=== PATIENT | male | born 1950 | race Caucasian/White ===

== ENCOUNTER 2016-11-24 20:30 | Emergency (ER) | payer MEDICAID, OTHER ==
[~2016-11-24] VITALS: Ht 175.3 cm; Wt 76.4 kg
[~2016-11-24 20:30] MED LIST: DILAUDID; ECOTRIN81 MG PO; ESCITALOPRAM10 MG PO; GLUCOPHAGE1000 MG PO; GLUCOTROL5 MG PO; LEXAPRO; LISINOPRIL; LORAZEPAM; METFORMIN; NEURONTIN300 MG PO; SINEMET CR 25 M1 TER PO; ZESTRIL10 MG PO; ZOCOR20 MG PO
[2016-11-24 20:47] VITALS: BP 152/78
--- NOTE | 2016-11-24 22:01 | NUR ---
Patient ambulated to bed 08.
--- NOTE | 2016-11-24 22:08 | NUR ---
Dr. Alex evaluating patient at bedside.
[2016-11-24] MEDS ORDERED: INSULIN HUMAN REGULAR 100 UNITS/ML 10 ML VIAL IVP ONE (22:10)
[2016-11-24] MEDS ORDERED: FLUORESCEIN OPTH STRIP 1 MG OP ONE (22:10)
[2016-11-24] MEDS ORDERED: TETRACAINE 0.5% OPTH SOL 2 ML BTL OP ONE (22:10)
[2016-11-24] MEDS ORDERED: GENTAMICIN OP 0.3% 10.5 MG/3.5 GM TUBE OP ONE (22:10)
[2016-11-24] MEDS ORDERED: NACL 0.9% 1,000 ML IV ONE (22:10)
--- NOTE | 2016-11-24 22:10 | NUR ---
66M BIB SELF W/C/O RIGHT EYE PAIN SINCE TODAY. DENIES ANY TRAUMA. STATES HE WAS AT HOME WHEN EYE IRRITATION BEGAN. RIGHT EYE SWELLING AND REDNESS NOTED. DENIES N/V/D; SKIN IS PINK/WARM/DRY; AAOX4 WITH EVEN AND STEADY GAIT; LUNGS CLEAR BL; HR EVEN AND REGULAR; PT DENIES ANY FEVER, CP, SOB, OR COUGH AT THIS TIME; PATIENT STATES PAIN OF 9/10 AT THIS TIME; VSS; PATIENT POSITIONED FOR COMFORT; HOB ELEVATED; BEDRAILS UP X2; BED DOWN. ER MD MADE AWARE OF PT STATUS.
[2016-11-24] MEDS ORDERED: FLUORESCEIN OPTH STRIP 1 MG ONE (22:13)
[2016-11-24] MEDS ORDERED: TETRACAINE 0.5% OPTH SOL 2 ML BTL ONE (22:13)
--- NOTE | 2016-11-24 22:25 | NUR ---
LAB AT BEDSIDE.
--- NOTE | 2016-11-24 22:49 | NUR ---
LAB COLLECTED. IV TO LEFT HAND #24; ADMINISTERED IVF AND MEDICATION ORDERED WITH EDUCATION. PATIENT VERBALIZED UNDERSTANDING AND TOLERATED WELL. WILL CONTINUE TO MONITOR AND REASSESS.
--- NOTE | 2016-11-24 23:01 | NUR ---
PATIENT AWARE OF URINE COLLECTION; PATIENT STATES HE URINATED BEFORE HE CAME; STATES HE WILL TRY WHEN HE CAN.
--- NOTE | 2016-11-24 23:22 | NUR ---
GAVE PATIENT URINAL; STATES HE WILL TRY TO URINATE
[2016-11-24] MEDS ORDERED: MORPHINE SULFATE 4 MG/ML SYR IVP ONE (23:45)
--- NOTE | 2016-11-24 23:46 | NUR ---
PATIENT CALLED FRIEND DIANA TO COME PICK HIM UP UPON DISCHARGE
--- NOTE | 2016-11-24 23:51 | NUR ---
APPLIED EYE DRESSING TO RIGHT EYE. PATIENT C/O 9/10 PAIN TO RIGHT EYE. VSS. ADMINISTERED PAIN MEDICATION ORDERED WITH EDUCATION. PATIENT VERBALIZED UNDERSTANDING AND TOLERATED WELL. WILL REASSESS AND CONTINUE TO MONITOR. BS CHECK; ER INFORMED
--- NOTE | 2016-11-25 | NUR ---
DIANA FRIEND AT BEDSIDE
[2016-11-25 00:07] VITALS: BP 152/78
--- NOTE | 2016-11-25 00:07 | NUR ---
Patient discharged with v/s stable. Written and verbal after care instructions given and explained. Patient alert, oriented and verbalized understanding of instructions. Ambulatory with steady gait. All questions addressed prior to discharge. ID band removed. Patient advised to follow up with PMD. Rx of TRAMADOL 50MG given. Patient educated on indication of medication including possible reaction and side effects. Opportunity to ask questions provided and answered. DISCHARGED AND IV REMOVED BY
== END 2016-11-25 00:07 | disposition home or self-care (01) ==
LOC: MED 20:30
DX: S05.01XA Injury of conjunctiva and corneal abrasion without foreign body, right eye, initial encounter (principal); E11.65 Type 2 diabetes mellitus with hyperglycemia; I10 Essential (primary) hypertension; Z79.82 Long term (current) use of aspirin; Z79.899 Other long term (current) drug therapy; X58.XXXA Exposure to other specified factors, initial encounter; Y93.89 Activity, other specified; Y92.89 Other specified places as the place of occurrence of the external cause; Y99.8 Other external cause status
CPT/HCPCS: 36415; 80053; 81001; 82948; 85025; 96361; 96374; 96375; 99285; J1815; J2270; J7030

== ENCOUNTER 2018-09-05 23:19 | Inpatient (IN) | payer OTHER, MEDICARE ==
[~2018-09-05] VITALS: Ht 175.3 cm; Wt 90.3 kg
--- NOTE | 2018-09-05 01:10 | NUR ---
RECEIVED PT FROM ER NURSE. PT AWAKE,ALERT, OX 4. PT ASSESSES WITH MULTIPLE WOUNDS ON FOOT BY ER. PHOTO TAKEN BY ER. PT'S SACRUM ASSESSED W/ PHOTO TAKEN AT ROOM. PT TELE. WITH ONGOING IVF AB FROM ER INFUSING WELL. PT ORIENTED TO UNIT. POC DISCUSSED. PLACED BED AT LOWEST POSITION AND CALL LIGHT PLACED WITHIN EASY REACH.
[2018-09-05 23:19] VITALS: BP 105/63
[~2018-09-05 23:19] MED LIST changes: +ASPI-1093 PO; +CARB1TER4 PO; -DILAUDID; -ECOTRIN81 MG PO; +ESCI10TA61 PO; -ESCITALOPRAM10 MG PO; +GABA300C PO; +GLIP5TAB4 PO; -GLUCOPHAGE1000 MG PO; -GLUCOTROL5 MG PO; -LEXAPRO; +LISI10TA11 PO; -LISINOPRIL; -LORAZEPAM; +METF1000 PO; -METFORMIN; -NEURONTIN300 MG PO; +SIMV20TA1 PO; -SINEMET CR 25 M1 TER PO; -ZESTRIL10 MG PO; -ZOCOR20 MG PO
--- NOTE | 2018-09-05 23:19 | NUR ---
Patient BIBA ACLS, transferred to bed 7. RN evaluating patient at bedside.
--- NOTE | 2018-09-05 23:20 | NUR ---
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 AOX4, GCS 15. REPORTS SOB, DENIES N/V/D, SKIN IS WARM AND DRY. ARRIVED ON 2LPMNC SATS 98%. PER EMS FACILITY GAVE PT ASA 325MG AND EMS GAVE NITRO 0.4MG. PT DENIES ANY RELIEF. ALL LUNG SOUNDS CLEAR BUT DIMINSHED AT BASES. PMH: HYPERLIPIDEMIA, PARKINSON'S, OPEN HEART SURGERY X2, DM, FOOT ULCERS Addendum: 09/06/18 at 0044 by NICANOR PT ALSO ARRIVED WITH THERESE TO LEFT INNER THIGH AND LEFT GROIN, PER PT " THEY PUT A STENT ON MY LEG"
--- NOTE | 2018-09-05 23:20 | NUR ---
Patient noted to have existing wounds upon arrival to ER. Photos taken of wound and placed in chart. Wound covered with dressing. Physician informed.
--- NOTE | 2018-09-05 23:22 | NUR ---
Dr. Stuart evaluating patient at bedside.
[2018-09-05] MEDS ORDERED: NACL 0.9% 1,000 ML IV ONE (23:25)
[2018-09-05] MEDS ORDERED: ALBUTEROL SULFATE/IPRATROPIU 3 ML SOL IH ONE (23:25)
--- NOTE | 2018-09-05 23:37 | NUR ---
Breathing treatment administered at bedside by respiratory therapist.
--- NOTE | 2018-09-05 23:40 | NUR ---
histology technologist at bedside.
[2018-09-05 23:55] LABS: HEMATOCRIT 25.4 % (36-52)
--- NOTE | 2018-09-05 23:55 | NUR ---
PT SATS 98% ON ROOM AIR. DC O2 ON NC.
[2018-09-06 00:02] LABS: BASOPHILS # (AUTO) 0.1 K/uL (0.00-0.22); BASOPHILS % (AUTO) 0.9 % (0.0-2.0); EOSINOPHILS # (AUTO) 0.4 K/uL (0-0.4); EOSINOPHILS % (AUTO) 3.1 % (0.0-4.0); HEMOGLOBIN 8.1 g/dL (12.0-18.0); LYMPHOCYTES # (AUTO) 1.8 K/uL (2.0-11.5); LYMPHOCYTES % (AUTO) 15.2 % (20.5-51.1); MEAN CORPUSCULAR HEMOGLOBIN 25 pg (27-31); MEAN CORPUSCULAR HGB CONC 32 g/dL (33-37); MEAN CORPUSCULAR VOLUME 77.6 fL (80-94); MONOCYTES # (AUTO) 1.3 K/uL (0.8-1.0); MONOCYTES % (AUTO) 10.6 % (1.7-9.3); NEUTROPHILS # (AUTO) 8.4 K/uL (1.8-7.7); NEUTROPHILS % (AUTO) 70.2 % (42.2-75.2); PLATELET COUNT (AUTO) 578 K/uL (140-450); RED BLOOD CELL COUNT(AUTO) 3.28 MIL/uL (4.20-6.10); RED CELL DISTRIBUTION WIDTH 16.3 % (11.6-13.7)
[2018-09-06 00:07] LABS: ANION GAP 12.3 (8-16); CARBON DIOXIDE 25.9 mmol/L (21-32); POTASSIUM 4.2 mmol/L (3.5-5.1)
[2018-09-06 00:08] LABS: CREATININE 1.3 mg/dL (0.7-1.3)
[2018-09-06 00:10] LABS: ALBUMIN 1.7 g/dL (3.4-5.0); TOTAL BILIRUBIN 0.1 mg/dL (0.0-1.0)
[2018-09-06] MEDS ORDERED: VANCOMYCIN 1,000 MG in DEXTROSE 5% 250 ML IV ONE (00:15)
[2018-09-06] MEDS ORDERED: PIPERACILLIN/TAZOBACTAM 3.375 GM in DEXTROSE 5% 50 ML IV ONE (00:15)
[2018-09-06] MEDS ORDERED: NACL 0.9% 1,000 ML IV ONE (00:15)
[2018-09-06] MEDS ORDERED: VANCOMYCIN 1,000 MG VIAL ONE (00:24)
[2018-09-06] MEDS ORDERED: PIPERACILLIN/TAZOBACTAM 3.375 GM VIAL IV ONE ×2 (00:24→00:26)
[2018-09-06] MEDS ORDERED: METO50TE2 PO (00:26)
[2018-09-06] MEDS ORDERED: ACET-2619 PO (00:26)
[2018-09-06] MEDS ORDERED: ISOS60TE3 PO (00:26)
[2018-09-06] MEDS ORDERED: METR250T2 PO (00:26)
[2018-09-06] MEDS ORDERED: VANC1PDS14 IV (00:26)
[2018-09-06] MEDS ORDERED: CLOP75TA55 PO (00:26)
[2018-09-06] MEDS ORDERED: LEVO750T2 PO (00:26)
[2018-09-06] MEDS ORDERED: HUM SUBQ (00:26)
[2018-09-06] MEDS ORDERED: DOCU-299 PO (00:26)
[2018-09-06] MEDS ORDERED: RANEX500 PO (00:26)
[2018-09-06] MEDS ORDERED: HYDR-5092 PO (00:26)
[2018-09-06 00:33] LABS: APPEARANCE,URINE CLEAR (CLEAR); BILIRUBIN,URINE NEGATIVE (NEGATIVE); BLOOD, URINE NEGATIVE (NEGATIVE); COLOR,URINE YELLOW (YELLOW); LEUKOCYTE ESTERASE ,URINE NEGATIVE (NEGATIVE); NITRITE, URINE NEGATIVE (NEGATIVE); PH,URINE 5.5 (5.0-9.0); UGLUCOSE NEGATIVE (NEGATIVE)
[2018-09-06 00:36] LABS: RBC,URINE 0-5 (RARE) /HPF (0-5); WBC,URINE 0-5 (RARE) /HPF (0-5)
[2018-09-06 00:40] LABS: YEAST,URINE Rare /HPF (None Seen)
--- NOTE | 2018-09-06 01:04 | NUR ---
Patient will be admitted to care of [facility]. Admited to TELE. Will go to room 118. Belongings list completed. Report to JAVID NEFF.
[2018-09-06 01:15] VITALS: BP 105/50
--- NOTE | 2018-09-06 01:30 | NUR ---
CALLED [facility] AWAITING DR. COVARRUBIAS TO CALL BACK FOR ORDERS OF DIET.
[2018-09-06] MEDS ORDERED: HYDRAGUARD CREAM TP PRN (01:55)
--- NOTE | 2018-09-06 02:30 | NUR ---
PT SLEEPING IN BED, NO COMPLAINTS OF RESPIRATORY DISTRESS. WITHIN TOLERABLE PAIN ON BILATERAL FEET FOR WOUNDS. WILL CONTINUE TO MONITOR.
[2018-09-06] MEDS ORDERED: ONDANSETRON 4 MG/2 ML VIAL IVP PRN (02:40)
[2018-09-06] MEDS ORDERED: NITROGLYCERIN 0.4 MG TAB SL PRN (02:40)
[2018-09-06] MEDS ORDERED: ACETAMINOPHEN 325 MG TAB PO PRN (02:40)
[2018-09-06] MEDS ORDERED: INSULIN LISPRO SLIDING SCALE 100 UNITS/ML VIAL SUBQ PRN (02:50)
[2018-09-06 04:00] VITALS: BP 105/50
[2018-09-06 07:34] LABS: BASOPHILS # (AUTO) 0.1 K/uL (0.00-0.22); BASOPHILS % (AUTO) 0.8 % (0.0-2.0); EOSINOPHILS # (AUTO) 0.4 K/uL (0-0.4); EOSINOPHILS % (AUTO) 2.8 % (0.0-4.0); HEMOGLOBIN 8.8 g/dL (12.0-18.0); LYMPHOCYTES # (AUTO) 2.1 K/uL (2.0-11.5); LYMPHOCYTES % (AUTO) 16.9 % (20.5-51.1); MEAN CORPUSCULAR HEMOGLOBIN 25 pg (27-31); MEAN CORPUSCULAR HGB CONC 31 g/dL (33-37); MEAN CORPUSCULAR VOLUME 78.9 fL (80-94); MONOCYTES # (AUTO) 0.9 K/uL (0.8-1.0); MONOCYTES % (AUTO) 7.5 % (1.7-9.3); PLATELET COUNT (AUTO) 654 K/uL (140-450); RED BLOOD CELL COUNT(AUTO) 3.55 MIL/uL (4.20-6.10); RED CELL DISTRIBUTION WIDTH 16.7 % (11.6-13.7); WHITE BLOOD COUNT (AUTO) 12.6 K/uL (4.8-10.8)
--- NOTE | 2018-09-06 07:39 | NUR ---
NO CALL BACK FROM procurement professional FOR [facility]. AT THIS TIME. ENDORSED TO NEXT SHIFT RE: DIET.
--- NOTE | 2018-09-06 07:40 | NUR ---
PT ENDORSED TO AM SHIFT NURSE. PT LAYING ON BED, AWAKE. IN STABLE CONDITION.
--- NOTE | 2018-09-06 07:41 | NUR ---
RECEIVED REPORT FROM SPOOLER NURSE. PATIENT LYING DOWN IN BED WATCHING TV. NO DISTRESS NOTED. PAIN WITHIN TOLERABLE AT THIS TIME. AAOX4, CALM, COOPERATIVE, SKIN COLOR APPROPRIATE TO ETHNICITY, WARM TO TOUCH. HAS MULTIPLE WOUNDS NOTED ON B/L FEET. DRESSINGS ARE DRY AND INTACT. WOUND NURSE EVAL CONSULT PENDING. IV SITES INTACT, PATENT, ON SALINE LOCK. REVIEWED PLAN OF CARE WITH PATIENT. PATIENT VERBALIZED UNDERSTANDING. SAFETY MEASURES IN PLACE, CALL LIGHT WITHIN REACH. WILL CONTINUE TO MONITOR.
[2018-09-06 08:00] VITALS: BP 111/57
[2018-09-06] MEDS: FUROSEMIDE 40 MG/4 ML VIAL IVP SCH ×2 (08:49→17:00)
[2018-09-06] MEDS: MORPHINE SULFATE 2 MG/ML SYR IVP PRN ×3 (08:50→17:12)
[2018-09-06 08:58] LABS: ALBUMIN 1.9 g/dL (3.4-5.0); ANION GAP 14.8 (8-16); CARBON DIOXIDE 25.9 mmol/L (21-32); CREATININE 1.2 mg/dL (0.7-1.3); POTASSIUM 4.7 mmol/L (3.5-5.1); TOTAL BILIRUBIN 0.2 mg/dL (0.0-1.0)
[2018-09-06 08:59] LABS: CHOL/HDL RATIO 2.6 (1-4.5)
--- NOTE | 2018-09-06 08:59 | NUR ---
PATIENT LYING IN BED WITH COMPLAINTS OF PAIN ON B/L FOOTS, MORPHINE GIVEN PER MD ORDERS. OTHER SCHEDULED MEDICATIONS DUE GIVEN. WILL CONTINUE TO MONITOR.
[2018-09-06] MEDS ORDERED: ASPIRIN 81 MG TAB.CHEW PO SCH (09:00)
[2018-09-06] MEDS ORDERED: ATORVASTATIN 20 MG TAB PO SCH (09:00)
--- NOTE | 2018-09-06 09:50 | NUR ---
PATIENT HAS BEEN SCREENED AND CATEGORIZED HIGH NUTRITION RISK. PATIENT WILL BE SEEN WITHIN 1-2 DAYS OF ADMISSION. 09/06/18-09/07/[address]
--- NOTE | 2018-09-06 11:28 | NUR ---
PATIENT HAD VOMIT X 1 EPISODE, ZOFRAN GIVEN PER ORDERS. WILL CONTINUE TO MONITOR.
[2018-09-06 12:00] VITALS: BP 115/63
--- NOTE | 2018-09-06 12:46 | NUR ---
DR. GOMES Y AT BEDSIDE REVIEWING PLAN OF CARE WITH PATIENT. WILL CONTINUE TO MONITOR.
[2018-09-06] MEDS ORDERED: DEXTROSE 50% 50 ML SYR IVP PRN (12:55)
[2018-09-06] MEDS ORDERED: HYDRAGUARD CREAM TP SCH (13:00)
--- NOTE | 2018-09-06 13:04 | NUR ---
PATIENT LYING IN BED WITH COMPLAINTS OF PAIN, MORPHINE GIVEN PER ORDERS. WILL CONTINUE TO MONITOR.
--- NOTE | 2018-09-06 14:24 | NUR ---
DR MYERS IN THE UNIT VISITED PATIENT NEW ORDER OK TO DISCHARGE PATIENT BACK TO [facility] . CALLED [facility] SPOKE WITH HOUSE SUP PATIENT CAN GO TO ROOM 2B . CALLED [employer] FOR AUTH NUMBER FOR [facility] AUTH #[id number].[employer] FOUNDER TIME 1830
[2018-09-06 16:00] VITALS: BP 110/64
--- NOTE | 2018-09-06 16:09 | NUR ---
09/06/18 RD INITIAL ASSESSMENT COMPLETED PLEASE REFER TO NUTRITION ASSESSMENT UNDER CARE ACTIVITY FOR ESTIMATED NUTRITIONAL NEEDS. RD RECOMMENDATIONS: 1. RECOMMEND ADDING CCHO 60 GM DIET ONTO CARDIAC DIET D/T PT WITH PMH OF DM AND MULTIPLE DIABETIC ULCERS. 2. RECOMMEND ADDING GLUCERNA SHAKE BID DAILY PER PTS REQUEST. 3. RECOMMEND ORDERING 500 MG OF VITAMIN C DAILY AND 220 MG ZINC SULFATE DAILY TO PROMOTE WOUND HEALING. --NOTE PT WITH MULTIPLE WOUNDS IN LOWER EXTREMITIES. 4. DM DIET AND HEART HEALTHY DIET EDUCATION HANDOUT WAS PROVIDED TO PT. 5. RD WILL F/U 3-5 DAYS; MODERATE RISK. MIKAYLA HOLLIS RD
[2018-09-06] MEDS ORDERED: BLOOD GLUCOSE MONITORING 1 DEV DEV FS SCH (16:30)
--- NOTE | 2018-09-06 17:16 | NUR ---
PATIENT LYING IN BED WATCHING TV. COMPLAINS OF B/L FOOT AND GROIN PAIN. MORPHINE GIVEN PER MD ORDERS. OTHER SCHEDULED MEDICATIONS DUE GIVEN. FUROSEMIDE NOT GIVEN DUE TO DECREASED BP. WILL CONTINUE TO MONITOR.
--- NOTE | 2018-09-06 17:42 | NUR ---
CALLED [facility] AT [phone] AND SPOKE WITH AISHWARYA GROSSMAN REGARDING [facility]S TRANSFER BACK LATER TODAY. NO ANSWERED ALL OF RN'S QUESTIONS REGARDING TRANSFER. FOLLOW-UP VISIT WITH AIRPLANE G[employer] TANK LINER ASSEMBLER AND PCP INSTRUCTIONS GIVEN TO [facility]. PICKUP TIME BY [facility] AT 1830, [facility] VERBALIZED UNDERSTANDING AND AWAITING FOR PATIENT'S ARRIVAL. WILL CONTINUE TO MONITOR.
--- NOTE | 2018-09-06 18:00 | NUR ---
DISCHARGE INSTRUCTIONS PROVIDED TO PATIENT IN PREFERRED LANGUAGE OF GRENADIAN, FOLLOW-UP VISITS WITH PCP AND DIRECTOR ENERGY, MEDICATION REGIMEN, AND DIET REGIMEN. PATIENT VERBALIZED COMPLETE UNDERSTANDING. PATIENT TO BE TRANSFERRED TO [facility]. PATIENT VERBALIZED UNDERSTANDING. AWAITING FOR [facility] TO ARRIVE. WILL CONTINUE TO MONITOR.
--- NOTE | 2018-09-06 19:15 | NUR ---
[facility] ON UNIT TO TAKE PATIENT TO [facility]. PATIENT TRANSFERRED TO [facility] AT THIS TIME.
--- NOTE | 2018-09-08 08:32 | NUR ---
WOUND CARE CONSULT NOT DONE, PT. DISCHARGED.
== END 2018-09-06 19:15 | disposition home or self-care (01) | DRG 198 ==
LOC: MED 23:19 → MTU 09-06 00:43
PROVIDERS: ADMIT Hospitalist; ATTEND Hospitalist
DX: R07.89 Other chest pain (principal); I25.10 Atherosclerotic heart disease of native coronary artery without angina pectoris; E43 Unspecified severe protein-calorie malnutrition; E11.621 Type 2 diabetes mellitus with foot ulcer; G20 Parkinson's disease; I11.0 Hypertensive heart disease with heart failure; I50.9 Heart failure, unspecified; J44.9 Chronic obstructive pulmonary disease, unspecified; E86.0 Dehydration; E78.00 Pure hypercholesterolemia, unspecified; L97.529 Non-pressure chronic ulcer of other part of left foot with unspecified severity; D64.9 Anemia, unspecified; L97.519 Non-pressure chronic ulcer of other part of right foot with unspecified severity; F17.210 Nicotine dependence, cigarettes, uncomplicated; Z95.1 Presence of aortocoronary bypass graft; Z79.899 Other long term (current) drug therapy; Z79.02 Long term (current) use of antithrombotics/antiplatelets; Z79.4 Long term (current) use of insulin
CPT/HCPCS: 36415; 71045; 80053; 81001; 82948; 83605; 83880; 84484; 85025; 87040; 87070; 87081; 87086; 93005; 94640; 96365; 96375; 99285; J1815; J1940; J2270; J2405; J2543; J3370; J7030; J7060; J7620